=== PATIENT | male | born 1990 | race Caucasian/White ===

== ENCOUNTER 2023-02-27 16:32 | Emergency (ER) | payer OTHER ==
[2023-02-27 16:57] VITALS: BP 158/87; PULSE 89; RESP 18; TEMP 98.1
--- NOTE | 2023-02-27 16:58 | ED ---
General Adult HPI - General Source: patient Mode of arrival: ambulatory Limitations: no limitations <Jennie Velazco - Last Filed: 02/27/23 16:52> <Valdemar Thomas - Last Filed: 02/27/23 18:58> - General Chief complaint: Recheck/Abnormal Lab/Rx Stated complaint: possible PE Time Seen by Provider: 02/27/23 16:52 - History of Present Illness Initial comments: Patient is a 32-year-old male presented ER with a chief complaint of possible PE. Patient received a CTA earlier today which states they cannot rule it out. Patient is here for further evaluation. Patient denies any current symptoms. (Jennie Velazco) Dictation was produced using [employer] dictation software. please excuse any grammatical, word or spelling errors. Chief Complaint: 32-year-old male with hemoptysis History of Present Illness: [id number] male presents emergency department for acute on chronic cough. He has had hemoptysis or last several days. Patient has had a cough for several months. With to see his primary care doctor sent him for a CT angiography due to hemoptysis. Patient has a history of blood clots. He went to outpatient CT when he had equivocal results. The tongue to come to the emergency department because they cannot rule out pulmonary embolism. Patient denies any shortness of breath The ROS documented in this emergency department record has been reviewed and confirmed by me. Those systems with pertinent positive or negative responses have been documented in the HPI. All other systems are other negative and/or noncontributory. (Valdemar Thomas) - Related Data Home Medications Medication Instructions Recorded Confirmed Albuterol Inhaler [Ventolin Hfa 1 - 2 puff INHALATION RT-Q6H PRN 06/10/22 1 04/29/22 Inhaler] Esomeprazole Magnesium [NexIUM 40 mg PO DAILY 06/10/22 02/27/23 24Hr] Ibuprofen [Motrin Ib] 400 mg PO TID 06/10/22 02/27/23 Allergies Allergy/AdvReac Type Severity Reaction Status Date / Time fluticasone Allergy Dyspnea Verified 02/27/23 17:46 [From Advair Diskus] Penicillins Allergy Anaphylaxis Verified 02/27/23 17:46 salmeterol Allergy Dyspnea Verified 02/27/23 17:46 [From Advair Diskus] Review of Systems ROS Other: All systems not noted in ROS Statement are negative. <Jennie Velazco - Last Filed: 02/27/23 16:52> ROS Other: All systems not noted in ROS Statement are negative. <Valdemar Thomas - Last Filed: 02/27/23 18:58> ROS Statement: Those systems with pertinent positive or pertinent negative responses have been documented in the HPI. Past Medical History Past Medical History: GERD/Reflux, Hypertension Additional Past Medical History / Comment(s): chronic back pain, DJD History of Any Multi-Drug Resistant Organisms: None Reported Past Surgical History: Orthopedic Surgery Past Psychological History: Anxiety, PTSD Smoking Status: Never smoker Past Alcohol Use History: None Reported Past Drug Use History: None Reported <Jennie Velazco - Last Filed: 02/27/23 16:52> General Exam Limitations: no limitations <Jennie Velazco - Last Filed: 02/27/23 16:52> <Valdemar Thomas - Last Filed: 02/27/23 18:58> - General Exam Comments Initial Comments: Visual Physical Exam Vital signs reviewed General: Well-appearing, nontoxic, no acute distress. Head: Normocephalic, atraumatic Eyes: PERRLA, EOMI ENT: Airway patent Chest: Nonlabored breathing Skin: No visual rash, normal skin tone Neuro: Alert and oriented 3 Musculoskeletal: No gross abnormalities (Jennie Velazco) PHYSICAL EXAM: General Impression: Alert and oriented x3, not in acute distress HEENT: Normocephalic atraumatic, extra-ocular movements intact, pupils equal and reactive to light bilaterally, mucous membranes moist. Cardiovascular: Heart regular rate and rhythm Chest: Able to complete full sentences, no retractions, no tachypnea mild rhonchi to the left lung base Abdomen: abdomen soft, non-tender, non-distended, no organomegaly Musculoskeletal: Pulses present and equal in all extremities, no peripheral edema Motor: no focal deficits noted Neurological: CN II-XII grossly intact, no focal motor or sensory deficits noted Skin: Intact with no visualized rashes Psych: Normal affect and mood (Valdemar Thomas) Course Vital Signs 02/27/23 16:45 Temperature 98.1 F Pulse Rate 89 Respiratory 18 Rate Blood Pressure 158/87 O2 Sat by Pulse 97 Oximetry Medical Decision Making <Jennie Velazco - Last Filed: 02/27/23 16:52> - Lab Data Result diagrams: 02/27/23 18:05 02/27/23 18:05 <Valdemar Thomas - Last Filed: 02/27/23 18:58> - Medical Decision Making I performed the quick note portion of the exam. Electronically signed by Jennie Velazco PA-C (Jennie Velazco) Was pt. sent in by a medical professional or institution (YAZMIN Prasad, TOURIST CAMP ATTENDANT, urgent care, hospital, or prison...) When possible be specific @ -No Did you speak to anyone other than the patient for history (EMS, parent, family, police, friend...)? What history was obtained from this source @ -No Did you review nursing and triage notes (agree or disagree)? Why? @ -I reviewed and agree with nursing and triage notes Were old charts reviewed (outside hosp., previous admission, EMS record, old EKG, old radiological studies, urgent care reports/EKG's, prison records)? Report findings @ -CT angiography from earlier today was reviewed. Differential Diagnosis (chest pain, altered mental status, abdominal pain women, abdominal pain men, vaginal bleeding, musculoskeletal, weakness, fever, dyspnea, syncope, headache, dizziness, GI bleed, back pain, seizure, CVA, palpatations, mental health)? @ -not applicable EKG interpreted by me (3pts min.). @ -None done X-rays interpreted by me (1pt min.). @ -Chest X-ray is nonacute CT interpreted by me (1pt min.). @ -None done U/S interpreted by me (1pt. min.). @ -None done What testing was considered but not performed or refused? (CT, X-rays, U/S, labs)? Why? @ -None What meds were considered but not given or refused? Why? @ -None Did you discuss the management of the patient with other professionals (professionals i.e. YAZMIN Prasad, TOURIST CAMP ATTENDANT, lab, RT, psych nurse, social work instructor, inspector and hand packager, teacher, community liaison officer, director of casework department)? Give summary @ -No Was smoking cessation discussed for >3mins.? @ -No Was critical care preformed (if so, how long)? @ -No Were there social determinants of health that impacted care today? How? (Homelessness, low income, unemployed, alcoholism, drug addiction, tra nsportation, low edu. Level, literacy, decrease access to med. care, custodial, rehab)? @ -No Was there de-escalation of care discussed even if they declined (Discuss DNR or withdrawal of care, Hospice)? DNR status @ -No What co-morbidities impacted this encounter? (DM, HTN, Smoking, COPD, CAD, Cancer, CVA, ARF, Chemo, Hep., AIDS, mental health diagnosis, sleep apnea, morbid obesity)? @ -None Was patient admitted / discharged? Hospital course, mention meds given and route, prescriptions, significant lab abnormalities, going to OR and other pertinent info. @ -32-year-old male presents to the emergency department for concerns of equivocal CT angiography. He's been having chronic symptoms of cough. He's been having some hemoptysis over the last couple days. Does not have any chest pain or shortness of breath. Patient well-appearing at the bedside. So lower extremity symptoms. Denies any history of blood clots. Vital signs stable. No recent travel. No recent surgery. Laboratory evaluation obtained. Labs are unremarkable. Most notably his d-dimer is normal making pulmonary embolism unlikely. Patient reevaluated bedside found with stable medical condition. Patient be discharged. Undiagnosed new problem with uncertain prognosis? @ -No Drug Therapy requiring intensive monitoring for toxicity (Heparin, Nitro, Insulin, Cardizem)? @ -No Were any procedures done? @ -No Diagnosis/symptom? Acute, or Chronic, or Acute on Chronic? Uncomplicated (without systemic symptoms) or Complicated (systemic symptoms)? @ -Equivocal CT angiography Side effects of treatment? @ -No Exacerbation, Progression, or Severe Exacerbation? @ -No Poses a threat to life or bodily function? How? (Chest pain, [place], CA, pneumonia, PE, COPD, DKA, ARF, appy, cholecystitis, CVA, Diverticulitis, Homicidal, Suicidal, threat to staff... and all critical care pts) @ -No (Valdemar Thomas) - Lab Data Lab Results 11/17/23 11/17/23 11/17/23 Range/Units 18:05 18:05 18:05 WBC 8.3 (3.8-10.6) k/uL RBC 5.28 (4.30-5.90) m/uL Hgb 15.6 (13.0-17.5) gm/dL Hct 43.7 (39.0-53.0) % MCV 82.8 (80.0-100.0) fL MCH 29.5 (25.0-35.0) pg MCHC 35.7 (31.0-37.0) g/dL RDW 13.0 (11.5-15.5) % Plt Count 234 (150-450) k/uL MPV 7.6 Neutrophils % 68 % Lymphocytes % 25 % Monocytes % 4 % Eosinophils % 2 % Basophils % 0 % Neutrophils # 5.6 (1.3-7.7) k/uL Lymphocytes # 2.0 (1.0-4.8) k/uL Monocytes # 0.3 (0-1.0) k/uL Eosinophils # 0.2 (0-0.7) k/uL Basophils # 0.0 (0-0.2) k/uL PT 10.0 (10.0-12.5) sec INR 0.9 (<1.2) APTT 25.3 (22.0-30.0) sec D-Dimer 0.21 (<0.60) mg/L FEU Sodium 140 (137-145) mmol/L Potassium 4.0 (3.5-5.1) mmol/L Chloride 104 (98-107) mmol/L Carbon Dioxide 22 (22-30) mmol/L Anion Gap 14 mmol/L BUN 14 (9-20) mg/dL Creatinine 0.78 (0.66-1.25) mg/dL Est GFR (CKD-EPI)AfAm >90 (>60 ml/min/1.73 sqM) Est GFR (CKD-EPI)NonAf >90 (>60 ml/min/1.73 sqM) Glucose 116 H (74-99) mg/dL Calcium 10.2 (8.4-10.2) mg/dL Total Bilirubin 0.5 (0.2-1.3) mg/dL AST 37 (17-59) U/L ALT 78 H (4-49) U/L Alkaline Phosphatase 74 (38-126) U/L Troponin I (0.000-0.034) ng/mL Total Protein 8.2 (6.3-8.2) g/dL Albumin 4.7 (3.5-5.0) g/dL 02/27/23 Range/Units 18:05 WBC (3.8-10.6) k/uL RBC (4.30-5.90) m/uL Hgb (13.0-17.5) gm/dL Hct (39.0-53.0) % MCV (80.0-100.0) fL MCH (25.0-35.0) pg MCHC (31.0-37.0) g/dL RDW (11.5-15.5) % Plt Count (150-450) k/uL MPV Neutrophils % % Lymphocytes % % Monocytes % % Eosinophils % % Basophils % % Neutrophils # (1.3-7.7) k/uL Lymphocytes # (1.0-4.8) k/uL Monocytes # (0-1.0) k/uL Eosinophils # (0-0.7) k/uL Basophils # (0-0.2) k/uL PT (10.0-12.5) sec INR (<1.2) APTT (22.0-30.0) sec D-Dimer (<0.60) mg/L FEU Sodium (137-145) mmol/L Potassium (3.5-5.1) mmol/L Chloride (98-107) mmol/L Carbon Dioxide (22-30) mmol/L Anion Gap mmol/L BUN (9-20) mg/dL Creatinine (0.66-1.25) mg/dL Est GFR (CKD-EPI)AfAm (>60 ml/min/1.73 sqM) Est GFR (CKD-EPI)NonAf (>60 ml/min/1.73 sqM) Glucose (74-99) mg/dL Calcium (8.4-10.2) mg/dL Total Bilirubin (0.2-1.3) mg/dL AST (17-59) U/L ALT (4-49) U/L Alkaline Phosphatase (38-126) U/L Troponin I <0.012 (0.000-0.034) ng/mL Total Protein (6.3-8.2) g/dL Albumin (3.5-5.0) g/dL Disposition <Jennie Velazco - Last Filed: 02/27/23 16:52> Is patient prescribed a controlled substance at d/c from ED?: No Time of Disposition: 18:58 <Valdemar Thomas - Last Filed: 02/27/23 18:58> Clinical Impression: Hemoptysis Disposition: HOME SELF-CARE Condition: Good Instructions (If sedation given, give patient instructions): Coughing Up Blood (Hemoptysis) (ED) Referrals: Roshan Anaya MD [Primary Care Provider] - 1-2 days
--- NOTE | 2023-02-27 18:07 | XR ---
EXAMINATION TYPE: XR chest 2V DATE OF EXAM: 02/27/2023 5:10 PM CLINICAL INDICATION:Male, 32 years old with history of difficulty breathing; [facility] COMPARISON: Earlier same day CT angiogram chest, PA chest x-ray 06/02/2022 TECHNIQUE: XR chest 2V Frontal and lateral views of the chest. FINDINGS: Lines/Tubes: No indwelling lines are seen. Lungs/Pleura: There is no evidence of pleural effusion, focal consolidation, or pneumothorax. Pulmonary vascularity: Unremarkable. Heart/mediastinum: Cardiomediastinal silhouette is unremarkable. Musculoskeletal: No acute osseous pathology. Other findings: None IMPRESSION: No acute cardiopulmonary disease/process. No significant interval change.
[2023-02-27 18:18] LABS: Basophils % (A) 0 %; Eosinophils # (A) 0.2 k/uL (0-0.7); Eosinophils % (A) 2 %; HCT 43.7 % (39.0-53.0); HGB 15.6 gm/dL (13.0-17.5); Lymphocytes % (A) 25 %; MCH 29.5 pg (25.0-35.0); MCHC 35.7 g/dL (31.0-37.0); MCV 82.8 fL (80.0-100.0); Mean Platelet Volume 7.6; Monocytes # (A) 0.3 k/uL (0-1.0); Monocytes % (A) 4 %; Neutrophils # (A) 5.6 k/uL (1.3-7.7); Neutrophils % (A) 68 %; Platelet Count 234 k/uL (150-450); RBC 5.28 m/uL (4.30-5.90); WBC 8.3 k/uL (3.8-10.6)
[2023-02-27 18:34] LABS: INR 0.9 (<1.2); Partial Thromboplastin Time 25.3 sec (22.0-30.0)
[2023-02-27 18:53] LABS: ALT 78 U/L (4-49); AST 37 U/L (17-59); African American GFR (CKD) >90 (>60 ml/min/1.73 sqM); Albumin 4.7 g/dL (3.5-5.0); Alkaline Phosphatase 74 U/L (38-126); Anion Gap 14 mmol/L; Blood Urea Nitrogen 14 mg/dL (9-20); Calcium 10.2 mg/dL (8.4-10.2); Carbon Dioxide 22 mmol/L (22-30); Chloride 104 mmol/L (98-107); Glucose 116 mg/dL (74-99); Non-African American GFR(CKD) >90 (>60 ml/min/1.73 sqM); Sodium 140 mmol/L (137-145); Total Bilirubin 0.5 mg/dL (0.2-1.3); Total Protein 8.2 g/dL (6.3-8.2)
== END 2023-02-27 19:19 | disposition home or self-care (01) ==
LOC: EC 16:32
DX: R04.2 Hemoptysis (principal); K21.9 Gastro-esophageal reflux disease without esophagitis; I10 Essential (primary) hypertension; F41.9 Anxiety disorder, unspecified; Z88.0 Allergy status to penicillin; Z88.8 Allergy status to other drugs, medicaments and biological substances; Z79.899 Other long term (current) drug therapy
CPT/HCPCS: 36415; 71046; 80053; 84484; 85025; 85379; 85610; 85730; 93005; 99284

== ENCOUNTER → 2023-02-27 | Outpatient (CLI) | payer OTHER ==
--- NOTE | 2023-02-27 15:42 | CT ---
EXAMINATION TYPE: CT angio chest DATE OF EXAM: 02/27/2023 COMPARISON: Radiograph 06/10/2022 HISTORY: 32-year-old male R04.2, Hemoptysis x 1.5 week TECHNIQUE: Contiguous axial scanning of the chest after the administration of 100 cc mL of Isovue 370 . Coronal/sagittal MIP reconstructions performed. CT DLP: 613.1mGycm. Automatic exposure control utilized for a dose reduction. FINDINGS: The heart is normal size without pericardial effusion. No flattening of the interventricular septum o r reflux of contrast into the hepatic veins. Ectatic aortic root at 3.6 cm. Otherwise, aorta normal caliber with conventional chest branching vianney kandy. No thoracic lymphadenopathy by CT size criteria. Markedly suboptimal contrast bolus. In addition, there is breathing motion artifact. No definite larg e central pulmonary embolus is seen. Many of the lobar, segmental, and more distal arterial branches are entirely nondiagnostic and emboli in these locations cannot be excluded on the basis of this exam . Hazy dependent atelectasis posterior lower lungs. No consolidation or pleural effusion. Some strandy atelectasis at the left base. Severely diminished attenuation of the hepatic parenchyma with fatty sparing at the wendie hepatis. Ga llbladder is collapsed. Bones: No osseous destructive process. IMPRESSION: 1. Markedly suboptimal contrast bolus along with breathing motion. No obvious large centrally located pulmonary embolus. However, many of the lobar, segmental, and more distal arterial branches are enti rely nondiagnostic and emboli in these locations cannot be excluded on the basis of this exam. 2. Some strandy lower lung atelectasis. 3. Very severe fatty liver change. Appropriate clinical management is advised.
== END | disposition home or self-care (01) ==
LOC: RADCTMAIN 14:50
PROVIDERS: ATTEND Family Medicine
DX: K76.0 Fatty (change of) liver, not elsewhere classified (principal); J98.11 Atelectasis; R04.2 Hemoptysis
CPT/HCPCS: 71275; Q9967

== ENCOUNTER → 2023-03-10 | Outpatient (CLI) | payer OTHER ==
--- NOTE | 2023-03-10 10:23 | US ---
EXAMINATION TYPE: US abdomen limited DATE OF EXAM: 03/10/2023 COMPARISON: CT CLINICAL INDICATION: Male, 32 years old with history of R10.12 LUQ PAIN; Pt states LUQ pain TECHNIQUE: Multiple sonographic images of the left upper quadrant are obtained. FINDINGS: EXAM MEASUREMENTS: Spleen: 14.2 cm. Normal less than 12.5 cm. Left Kidney: 13.3 x 6.6 x 5.2 cm HOSPICE VOLUNTEER NOTES: 1. Spleen: Slightly enlarged 2. Left Kidney: wnl IMPRESSION: Splenomegaly.
== END | disposition home or self-care (01) ==
LOC: RADUSWWP 09:33
PROVIDERS: ATTEND Family Medicine
DX: R16.1 Splenomegaly, not elsewhere classified (principal)
CPT/HCPCS: 76705